=== PATIENT | female | born 1955 | race Caucasian/White ===

== ENCOUNTER → 2016-10-08 | Outpatient (CLI) | payer BC ==
--- NOTE | 2016-10-08 09:38 | MM ---
Reason for exam: history of breast cancer, conservation therapy. Last mammogram was performed 1 year ago. History: Patient is postmenopausal, has history of other cancer at age 54, has history of breast cancer at age 51, and is nulliparous. Family history of breast cancer in sister at age 70. Excisional biopsy of the left breast, April 18, 2007. Malignant lumpectomy of the left breast, April 18, 2007. Malignant left mammotome panel of the left breast, April 09, 2007. Radiation therapy of the left breast, 2006. Took estrogen for 7 years 6 months beginning at age 44. Took progesterone for 7 years 6 months beginning at age 44. Physical Findings: Nurse did not find any significant physical abnormalities on exam. MG 3D Diag Mammo W/Cad RAHAT Bilateral CC and MLO view(s) were taken. Prior study comparison: October 06, 2015, bilateral MG 3d diag mammo w/cad RAHAT. October 04, 2014, bilateral MG diagnostic mammo w CAD RAHAT. No significant new findings when compared with previous films. These results were verbally communicated with the patient and result sheet given to the patient on 10/08/16. ASSESSMENT: Benign, BI-RAD 2 RECOMMENDATION: Follow-up diagnostic mammogram of both breasts in 1 year.
== END ==
LOC: RADMAMWWP 08:06
PROVIDERS: ATTEND Radiology Diagnostic Radiology
DX: Z85.3 Personal history of malignant neoplasm of breast (principal)
CPT/HCPCS: G0204; G0279

== ENCOUNTER → 2017-10-10 | Outpatient (CLI) | payer BC ==
--- NOTE | 2017-10-10 11:28 | MM ---
Reason for exam: additional evaluation requested from prior study. Last mammogram was performed 1 year ago. History: Patient is postmenopausal, has history of other cancer at age 54, has history of breast cancer at age 51, and is nulliparous. Family history of breast cancer in sister at age 70. Excisional biopsy of the left breast, April 18, 2007. Malignant lumpectomy of the left breast, April 18, 2007. Malignant left mammotome panel of the left breast, April 09, 2007. Radiation therapy of the left breast, 2006. Took estrogen for 7 years 6 months beginning at age 44. Took progesterone for 7 years 6 months beginning at age 44. Physical Findings: Nurse did not find any significant physical abnormalities on exam. MG 3D Diag Mammo W/Cad RAHAT Bilateral CC and MLO view(s) were taken. Prior study comparison: October 08, 2016, bilateral MG 3d diag mammo w/cad RAHAT. October 06, 2015, bilateral MG 3d diag mammo w/cad RAHAT. The breast tissue is heterogeneously dense. This may lower the sensitivity of mammography. Post surgical changes in the left breast. No significant new findings when compared with previous films. These results were verbally communicated with the patient and result sheet given to the patient on 10/10/17. ASSESSMENT: Benign, BI-RAD 2 RECOMMENDATION: Routine screening mammogram of both breasts in 1 year.
== END | disposition home or self-care (01) ==
LOC: RADMAMWWP 10:05
PROVIDERS: ATTEND Radiology Diagnostic Radiology
DX: Z08 Encounter for follow-up examination after completed treatment for malignant neoplasm (principal); Z85.3 Personal history of malignant neoplasm of breast
CPT/HCPCS: 77066; G0279

== ENCOUNTER 2018-02-02 16:17 | Emergency (ER) | payer BC ==
[2018-02-02 16:33] VITALS: BP 131/75; PULSE 68; RESP 18; TEMP 98.4
--- NOTE | 2018-02-02 17:27 | ED ---
General Adult HPI - General Chief complaint: Extremity Injury, Upper Stated complaint: LEFT SHOULDER INJURY FROM FALL Time Seen by Provider: 02/02/18 17:02 Source: patient, RN notes reviewed Mode of arrival: ambulatory Limitations: no limitations - History of Present Illness Initial comments: Patient 62-year-old female presenting to the emergency room today with a chief complaint of a fall that occurred approximately 12 skin appears that she was walking and then tripped over the first step onto the left shoulder. She states there is pain locally states seems to be doing well at this time. States she has been able to ambulate. Patient admits to pain in the left shoulder worse with movements. Patient denies any other complaints or symptoms. Patient denies any recent fever, chills, shortness of breath, chest pain, back pain, abdominal pain, nausea or vomiting, numbness or tingling, headaches or visual changes, or any other complaints. - Related Data Allergies Allergy/AdvReac Type Severity Reaction Status Date / Time acetaminophen [From Tylenol] Allergy Rash/Hives Verified 02/02/18 16:36 cephalexin [From Keflex] Allergy Rash/Hives Verified 02/02/18 16:36 Cephalosporins Allergy Rash/Hives Verified 02/02/18 16:36 erythromycin base Allergy Rash/Hives Verified 02/02/18 16:36 nitrofurantoin Allergy Rash/Hives Verified 02/02/18 16:36 [From Macrodantin] Penicillins Allergy Rash/Hives Verified 02/02/18 16:36 Sulfa (Sulfonamide Allergy Rash/Hives Verified 02/02/18 16:36 Antibiotics) Tetracyclines Allergy Rash/Hives Verified 02/02/18 16:36 anicin Allergy Rash/Hives Uncoded 02/02/18 16:36 Review of Systems ROS Statement: Those systems with pertinent positive or pertinent negative responses have been documented in the HPI. ROS Other: All systems not noted in ROS Statement are negative. Past Medical History Past Medical History: Hyperlipidemia, Hypertension, Thyroid Disorder History of Any Multi-Drug Resistant Organisms: None Reported Additional Past Surgical History / Comment(s): thyroidectomy, endometrisis sx Past Psychological History: Anxiety Smoking Status: Former smoker Past Alcohol Use History: Occasional Past Drug Use History: None Reported General Exam - General Exam Comments Initial Comments: General: The patient is awake and alert, in no distress, and does not appear acutely ill. Neck: The neck is supple, there is no tenderness or JVD. Cardiovascular: There is a regular rate and rhythm. No murmur, rub or gallop is appreciated. Respiratory: Lungs are clear to auscultation, respirations are non-labored, breath sounds are equal. No wheezes, stridor, rales, or rhonchi. Musculoskeletal: Patient does have tenderness to the proximal humerus. Shows limited range of motion due to pain. Sensations are intact. Radial pulses 2+. Strength from the left elbow and wrist and hand are 5/5. Neurological: A&O x 3. CN II-XII intact, There are no obvious motor or sensory deficits. Coordination appears grossly intact. Speech is normal. Skin: Skin is warm and dry and no rashes or lesions are noted. Psychiatric: Normal mood and affect. Limitations: no limitations Course Vital Signs 02/02/18 16:28 Temperature 98.4 F Pulse Rate 68 Respiratory 18 Rate Blood Pressure 131/75 O2 Sat by Pulse 100 Oximetry Medical Decision Making - Medical Decision Making X-ray reviewed and does show fracture through the greater tuberosity nondisplaced. Results were discussed with the patient. Patient given arm sling and advised follow-up orthopedics. Patient does not want anything for pain. Will be discharged home advised to ice area. Disposition Clinical Impression: Greater tuberosity of humerus fracture Disposition: HOME SELF-CARE Condition: Good Additional Instructions: Please follow-up the family doctor or orthopedics as discussed. Please use arm sling when up and moving around. Please return to emergency room for any other concerns. Is patient prescribed a controlled substance at d/c from ED?: No Referrals: Tenzin Loja MD [Primary Care Provider] - 1-2 days Javier Collier MD [STAFF PHYSICIAN] - 1-2 days Time of Disposition: 17:40
--- NOTE | 2018-02-02 17:28 | XR ---
EXAMINATION TYPE: XR shoulder complete LT DATE OF EXAM: 02/02/2018 COMPARISON: NONE HISTORY: 62-year-old female with pain after fall TECHNIQUE: 3 views FINDINGS: Nondisplaced fracture of the greater tuberosity. Subacromial space is preserved. No subluxation or di slocation. AC joint appears intact. IMPRESSION: Nondisplaced greater tuberosity fracture. Appropriate orthopedic follow-up recommended.
== END 2018-02-02 18:05 | disposition home or self-care (01) ==
LOC: EC 16:17
DX: S42.255A Nondisplaced fracture of greater tuberosity of left humerus, initial encounter for closed fracture (principal); Z87.891 Personal history of nicotine dependence; Z88.0 Allergy status to penicillin; Z88.1 Allergy status to other antibiotic agents; Z88.2 Allergy status to sulfonamides; Z88.6 Allergy status to analgesic agent; Z88.8 Allergy status to other drugs, medicaments and biological substances; W10.9XXA Fall (on) (from) unspecified stairs and steps, initial encounter
CPT/HCPCS: 99283

== ENCOUNTER → 2018-02-17 | Outpatient (CLI) | payer BC ==
--- NOTE | 2018-02-17 08:51 | CT ---
EXAMINATION TYPE: CT shoulder LT wo con DATE OF EXAM: 02/17/2018 COMPARISON: 02/02/2018 plain film HISTORY: Left shoulder pain from fall CT DLP: 313.80 mGycm Automated exposure control for dose reduction was used. Technique: Axial images 2 mm thick sections. Reconstructed images in the sagittal and coronal plane. Three-D reconstructed images performed separa tely on the [employer] computer are filmed and presented. FINDINGS: The humeral head articulates with the glenoid. The acromioclavicular junction appears normal. There is a subtle nondisplaced fracture of the greater tuberosity of the left humerus. No additional fractures are identified. Soft tissue density appears normal. No obvious large effusions are evident. There does appear to be some joint space narrowing suggestive for osteoarthritic degenerative change at the humeral glenoid junction. IMPRESSION: SUBTLE NONDISPLACED FRACTURE GREATER TUBEROSITY LEFT HUMERUS. NO SIGNIFICANT INTERVAL HEALING IDENTIF IED..
== END | disposition home or self-care (01) ==
LOC: RADCTMAIN 07:42
PROVIDERS: ATTEND Orthopaedic Surgery
DX: S42.255A Nondisplaced fracture of greater tuberosity of left humerus, initial encounter for closed fracture (principal)

== ENCOUNTER → 2018-07-28 | Outpatient (CLI) | payer MEDICARE ==
--- NOTE | 2018-07-28 09:46 | CT ---
EXAMINATION TYPE: CT brain wo con DATE OF EXAM: 07/28/2018 COMPARISON: None HISTORY: Trouble with balance, equilibrium instability CT DLP: 945.5 mGycm Automated exposure control for dose reduction was used. TECHNIQUE: CT scan of the head is performed without contrast. FINDINGS: There is no acute intracranial hemorrhage or midline shift identified. There is symmetric and mild ventricular and sulcal prominence consistent with diffuse age-related cerebral atrophy. Th ere is minimal low-attenuation in the periventricular white matter and within the bonnie such as on axi al image 13. No suspicious extra-axial fluid collection is seen. The globes are intact and the visual ized sinuses are clear. Carmelita bullosa are incidentally noted. IMPRESSION: 1. No acute intracranial hemorrhage or midline shift. 2. Mild periventricular and pontine hypointensity may be on the basis of microangiopathy however coul d be further evaluated with MRI.
--- NOTE | 2018-07-28 10:04 | US ---
EXAMINATION TYPE: US carotid duplex BILAT DATE OF EXAM: 07/28/2018 COMPARISON: NONE CLINICAL HISTORY: R55 Syncope. EXAM MEASUREMENTS: RIGHT: Peak Systolic Velocity (PSV) cm/sec ----- Right CCA: 57.4 ----- Right ICA: 78.2 ----- Right ECA: 59.5 ICA/CCA ratio: 1.4 RIGHT: End Diastole cm/sec ----- Right CCA: 17.3 ----- Right ICA: 28.5 ----- Right ECA: 7.2 LEFT: Peak Systolic Velocity (PSV) cm/sec ----- Left CCA: 68.3 ----- Left ICA: 60.9 ----- Left ECA: 67.0 ICA/CCA ratio: 0.9 LEFT: End Diastole cm/sec ----- Left CCA: 17.8 ----- Left ICA: 25.0 ----- Left ECA: 8.4 VERTEBRALS (direction of flow): Right Vertebral: Antegrade Left Vertebral: Antegrade Rhythm: Normal No elevated velocities, no significant stenosis. IMPRESSION: Mild degree of grayscale atheromatous plaquing with no sonographically evident hemodynam ically significant stenosis within either visualized carotid arterial system. Criteria for Assigning % of Stenosis / Diameter reduction (Estimation based on the indirect measurements of the internal carotid artery velocities (ICA PSV). 1. Normal (no stenosis)=ICA PSV < 125 cm/s: ratio < 2.0: ICA EDV<40 cm/s. 2. Less than 50% stenosis=ICA PSV < 125 cm/s: ratio < 2.0: ICA EDV<40 cm/s. 3. 50 to 69% stenosis=ICA PSV of 125 to 230 cm/s: ration 2.0 ? 4.0: ICA EDV 40-100 cm/s. 4. Greater than 70% stenosis to near occlusion= ICA PSV > 230 cm/s: ratio > 4.0: ICA EDV > 100 cm/s. 5. Near occlusion= ICA PSV velocities may be low or undetectable: variable ratio and ICA EDV. 6. Total occlusion=unable to detect flow.
--- NOTE | 2018-07-28 15:32 | ECHOF ---
Referral Reason:R55 Syncope MEASUREMENTS -------- HEIGHT: 170.2 cm WEIGHT: 71.7 kg BP: IVSd: 1.2 cm (0.6 - 1.1) LVIDd: 3.9 cm (3.9 - 5.3) LVPWd: 1.5 cm (0.6 - 1.1) IVSs: 1.5 cm LVIDs: 2.8 cm LVPWs: 1.6 cm LA Diam: 3.7 cm (2.7 - 3.8) RVIDd: 2.5 cm (< 3.3) LAESV Index (A-L): 28.73 ml/m Ao Diam: 2.3 cm (2.0 - 3.7) LA Diam: 4.0 cm (2.7 - 3.8) AV Cusp: 1.6 cm (1.5 - 2.6) EPSS: 0.3 cm MV E Flavio: 0.79 m/s MV DecT: 253 ms MV A Flavio: 0.70 m/s MV E/A Ratio: 1.12 RAP: 5.00 mmHg RVSP: 12.42 mmHg MV EF SLOPE: 90.62 mm/s (70 - 150) MV EXCURSION: 19.44 mm (> 18.000) FINDINGS -------- Sinus rhythm. This was a technically good study. The left ventricular size is normal. There is borderline concentric left ventricular hypertrophy. Overall left ventricular systolic function is normal with, an EF between 55 - 60 %. The right ventricle is normal in size. The left atrial size is normal. The right atrial size is normal. The aortic valve is trileaflet, and appears structurally normal. No aortic stenosis or regurgitation. Mild mitral regurgitation is present. Mild tricuspid regurgitation present. There is no evidence of pulmonary hypertension. The right v entricular systolic pressure, as measured by Doppler, is 12.42mmHg. Trace/mild (physiologic) pulmonic regurgitation. The aortic root size is normal. There is no pericardial effusion. CONCLUSIONS -------- 1. The left ventricular size is normal. 2. There is borderline concentric left ventricular hypertrophy. 3. The right ventricle is normal in size. 4. The left atrial size is normal. 5. The right atrial size is normal. 6. The aortic valve is trileaflet, and appears structurally normal. No aortic stenosis or regurgitati on. 7. Mild mitral regurgitation is present. 8. Mild tricuspid regurgitation present. 9. There is no evidence of pulmonary hypertension. 10. The right ventricular systolic pressure, as measured by Doppler, is 12.42mmHg. 11. Trace/mild (physiologic) pulmonic regurgitation. 12. The aortic root size is normal. 13. There is no pericardial effusion. GRINDER SET UP OPERATOR INTERNAL: Elif Carson RDCS
== END ==
LOC: RADCTMAIN 09:01
PROVIDERS: ATTEND Family Medicine
DX: I67.2 Cerebral atherosclerosis (principal); R94.02 Abnormal brain scan
CPT/HCPCS: 70450; 93306; 93880

== ENCOUNTER → 2018-10-13 | Outpatient (CLI) | payer MEDICARE ==
--- NOTE | 2018-10-13 11:48 | MM ---
Reason for exam: additional evaluation requested from prior study. Last mammogram was performed 1 year ago. History: Patient is postmenopausal, has history of other cancer at age 54, has history of breast cancer at age 51, and is nulliparous. Family history of breast cancer in sister at age 70. Excisional biopsy of the left breast, April 18, 2007. Malignant lumpectomy of the left breast, April 18, 2007. Malignant left mammotome panel of the left breast, April 09, 2007. Radiation therapy of the left breast, 2006. Took estrogen for 7 years 6 months beginning at age 44. Took progesterone for 7 years 6 months beginning at age 44. Physical Findings: Nurse did not find any significant physical abnormalities on exam. MG 3D Diag Mammo W/Cad RAHAT Bilateral CC and MLO view(s) were taken. Prior study comparison: October 10, 2017, bilateral MG 3d diag mammo w/cad RAHAT. October 08, 2016, bilateral MG 3d diag mammo w/cad RAHAT. The breast tissue is heterogeneously dense. This may lower the sensitivity of mammography. Post surgical and post therapy changes left breast. Central asymmetric density right CC view is unchanged. These results were verbally communicated with the patient and result sheet given to the patient on 10/13/18. ASSESSMENT: Benign, BI-RAD 2 RECOMMENDATION: Follow-up diagnostic mammogram of both breasts in 1 year.
== END ==
LOC: RADMAMWWP 10:56
PROVIDERS: ATTEND Radiology Diagnostic Radiology
DX: Z08 Encounter for follow-up examination after completed treatment for malignant neoplasm (principal); Z85.3 Personal history of malignant neoplasm of breast
CPT/HCPCS: 77066; G0279; 77062

== ENCOUNTER → 2019-12-31 | Outpatient (CLI) | payer MEDICARE ==
--- NOTE | 2020-01-05 09:19 | MM ---
Reason for exam: additional evaluation requested from prior study. Last mammogram was performed 1 year and 3 months ago. History: Patient is postmenopausal, has history of other cancer at age 54, has history of breast cancer at age 51, and is nulliparous. Family history of breast cancer in sister at age 70. Excisional biopsy of the left breast, April 18, 2007. Malignant lumpectomy of the left breast, April 18, 2007. Malignant left mammotome panel of the left breast, April 09, 2007. Radiation therapy of the left breast, 2006. Took estrogen for 7 years 6 months beginning at age 44. Took progesterone for 7 years 6 months beginning at age 44. Physical Findings: Nurse did not find any significant physical abnormalities on exam. MG 3D Diag Mammo W/Cad RAHAT Bilateral CC and MLO view(s) were taken. ML and spot compression CC view(s) were taken of the right breast. Prior study comparison: October 13, 2018, bilateral MG 3d diag mammo w/cad RAHAT. October 10, 2017, bilateral MG 3d diag mammo w/cad RAHAT. The breast tissue is heterogeneously dense. This may lower the sensitivity of mammography. Benign appearing bilateral calcifications. Lateral right posterior depth asymmetry persists on additional views with no ML correlate. Ultrasound will be performed. Post therapy change on the left. These results were verbally communicated with the patient and result sheet given to the patient on 12/31/19. ASSESSMENT: Incomplete: need additional imaging evaluation, BI-RAD 0 RECOMMENDATION: Ultrasound of the right breast.
--- NOTE | 2020-01-05 09:20 | USB ---
Reason for exam: additional evaluation requested from abnormal screening. History: Patient is postmenopausal, has history of other cancer at age 54, has history of breast cancer at age 51, and is nulliparous. Family history of breast cancer in sister at age 70. Excisional biopsy of the left breast, April 18, 2007. Malignant lumpectomy of the left breast, April 18, 2007. Malignant left mammotome panel of the left breast, April 09, 2007. Radiation therapy of the left breast, 2006. Took estrogen for 7 years 6 months beginning at age 44. Took progesterone for 7 years 6 months beginning at age 44. US Breast Limited RT Technologist: Lizz Butler Right limited breast ultrasound including focal area of concern, retroareolar and axilla demonstrates a 0.4 x 0.4 x 0.3cm cystic lesion at 6 o'clock. No sonographic correlate for the right mammographic asymmetry. These results were verbally communicated with the patient and result sheet given to the patient on 12/31/19. ASSESSMENT: Probably benign, BI-RAD 3 RECOMMENDATION: Follow-up diagnostic mammogram of the right breast in 6 months.
== END | disposition home or self-care (01) ==
LOC: RADMAMWWP 12:58
PROVIDERS: ATTEND Radiology Diagnostic Radiology
DX: R92.8 Other abnormal and inconclusive findings on diagnostic imaging of breast (principal); Z85.3 Personal history of malignant neoplasm of breast
CPT/HCPCS: 77066; 76642; G0279; 77062

== ENCOUNTER 2020-07-26 14:26 | Emergency (ER) | payer MEDICARE ==
[2020-07-26 14:31] VITALS: BP 138/79; PULSE 65; RESP 16; TEMP 98
--- NOTE | 2020-07-26 15:21 | XR ---
Left wrist HISTORY: Pain, trauma 4 views of the left wrist Bone mineralization, joint spaces and alignment are maintained. IMPRESSION: No fracture or dislocation is evident. Follow-up as indicated.
--- NOTE | 2020-07-26 15:24 | ED ---
Fall HPI - General Chief Complaint: Fall Stated Complaint: Fall Time Seen by Provider: 07/26/20 14:34 Source: patient, RN notes reviewed Mode of arrival: ambulatory Limitations: no limitations - History of Present Illness Initial Comments: 65-year-old female presents emergency Department with chief complaint of fall. Patient states she slipped on some ice fell backwards struck her head on concrete steps. Patient states she also injured her left wrist. Patient and no loss conscious. Patient does take aspirin patient does not take any blood thinners. Denies any back pain, hip pain. She is able to ambulate. She states is moderate swelling to her left wrist. Patient states there is pain with movement and palpation to her left wrist she is [id number] patient offers no other complaints. - Related Data Allergies Allergy/AdvReac Type Severity Reaction Status Date / Time acetaminophen [From Tylenol] Allergy Rash/Hives Verified 07/26/20 14:28 cephalexin [From Keflex] Allergy Rash/Hives Verified 07/26/20 14:28 Cephalosporins Allergy Rash/Hives Verified 07/26/20 14:28 erythromycin base Allergy Rash/Hives Verified 07/26/20 14:28 nitrofurantoin Allergy Rash/Hives Verified 07/26/20 14:28 [From Macrodantin] Penicillins Allergy Rash/Hives Verified 07/26/20 14:28 Sulfa (Sulfonamide Allergy Rash/Hives Verified 07/26/20 14:28 Antibiotics) Tetracyclines Allergy Rash/Hives Verified 07/26/20 14:28 anicin Allergy Rash/Hives Uncoded 07/26/20 14:28 Review of Systems ROS Statement: Those systems with pertinent positive or pertinent negative responses have been documented in the HPI. ROS Other: All systems not noted in ROS Statement are negative. Past Medical History Past Medical History: Hyperlipidemia, Hypertension, Thyroid Disorder History of Any Multi-Drug Resistant Organisms: None Reported Additional Past Surgical History / Comment(s): thyroidectomy, endometrisis sx Past Psychological History: Anxiety Smoking Status: Never smoker Past Alcohol Use History: Occasional Past Drug Use History: None Reported General Exam Limitations: no limitations General appearance: alert, in no apparent distress Head exam: Present: atraumatic, normocephalic, normal inspection Eye exam: Present: normal appearance, PERRL, EOMI. Absent: scleral icterus, conjunctival injection, periorbital swelling ENT exam: Present: normal exam, normal oropharynx, mucous membranes moist Neck exam: Present: normal inspection, full ROM. Absent: tenderness, meningismus, lymphadenopathy Respiratory exam: Present: normal lung sounds bilaterally. Absent: respiratory distress, wheezes, rales, rhonchi, stridor Cardiovascular Exam: Present: regular rate, normal rhythm, normal heart sounds. Absent: systolic murmur, diastolic murmur, rubs, gallop, clicks Extremities exam: Present: other (Left wrist there is moderate swelling noted, tenderness over mid wrist, there is no scaphoid tenderness) Back exam: Present: full ROM. Absent: tenderness Neurological exam: Present: alert, oriented X3, CN II-XII intact, reflexes normal. Absent: motor sensory deficit Skin exam: Present: warm, dry, intact, normal color. Absent: rash Course Vital Signs 07/26/20 14:28 Temperature 98 F Pulse Rate 65 Respiratory 16 Rate Blood Pressure 138/79 O2 Sat by Pulse 99 Oximetry Medical Decision Making - Medical Decision Making CT of the brain, C-spine are unremarkable. X-ray reviewed of the left wrist with no acute osseous abnormality. Patient has no scaphoid tenderness. Patient's left wrist sprain, mild head injury. Patient be discharged in stable condition. Disposition Clinical Impression: Fall, Head injury, Left wrist sprain Disposition: HOME SELF-CARE Condition: Stable Instructions (If sedation given, give patient instructions): Head Injury (ED), Wrist Sprain (ED) Additional Instructions: Please return to the Emergency Department if symptoms worsen or any other concerns. Is patient prescribed a controlled substance at d/c from ED?: No Referrals: Delisa Silverman DO [Primary Care Provider] - 1-2 days Delbert Levy DO [Doctor of Osteopathic Medicine] - 1-2 days Time of Disposition: 15:55
--- NOTE | 2020-07-26 15:33 | CT ---
EXAMINATION TYPE: CT brain jose a wo con DATE OF EXAM: 07/26/2020 COMPARISON: CT brain 07/28/2018 HISTORY: Fall, hit back of head CT DLP: 1276.5 mGycm Automated exposure control for dose reduction was used. TECHNIQUE: CT scan of the head and cervical spine are performed without contrast. FINDINGS: There is no acute intracranial hemorrhage, mass effect, or midline shift identified. The ventricles and sulci are within normal limits in size. The globes are intact and the visualized sin uses are clear. Cervical spine is visualized in its entirety from C1 through upper thoracic levels and demonstrates s atisfactory alignment without evidence of acute fracture or dislocation. Prevertebral soft tissue ap pears within normal limits. Degenerative disc changes are present in the visualized spine, there is f acet arthropathy change, there is a spinal curvature present centered at the lower cervical spine The C1-C2 articulation is unremarkable. IMPRESSION: 1. There is no acute fracture or dislocation evident in the cervical spine. 2. No acute intracranial hemorrhage, mass effect, or midline shift is seen.
== END 2020-07-26 15:57 | disposition home or self-care (01) ==
LOC: EC 14:26
DX: S63.502A Unspecified sprain of left wrist, initial encounter (principal); S09.90XA Unspecified injury of head, initial encounter; I10 Essential (primary) hypertension; E78.5 Hyperlipidemia, unspecified; Z88.6 Allergy status to analgesic agent; Z88.1 Allergy status to other antibiotic agents; Z88.0 Allergy status to penicillin; Z88.2 Allergy status to sulfonamides; Z88.8 Allergy status to other drugs, medicaments and biological substances; W00.0XXA Fall on same level due to ice and snow, initial encounter; Y92.009 Unspecified place in unspecified non-institutional (private) residence as the place of occurrence of the external cause
CPT/HCPCS: 70450; 72125; 99284

== ENCOUNTER → 2021-01-24 | Outpatient (CLI) | payer MEDICARE ==
[~2021-01-24] MED LIST: DOBUTamine DRIP for NUC MED 500 MG in DEXTROSE/WATER 1 250ML.BAG IV PRN
--- NOTE | 2021-01-24 11:17 | P.STRESS ---
- Stress Test Note Stress Test Results/Findings: Exam Performed: dobutamine stress echo Exam Date: 01/24/21 Reason for Exam: Abnormal EKG Height: 5 ft 7 in Weight: 77.564 kg Protocol: Dobutamine Stage: 40 Duration of Exercise: 14:20 Resting Heart Rate: 64 Resting Blood Pressure: 127/50 Maximum Achieved Heart Rate: 104 Maximum Achieved Blood Pressure: 232/50 85% PMHR: 130 100% PMHR: 153 METS: na Technologist Comment: Stress Test Results/Findings: This is a 65-year-old female with history of hypertension, hypercholesterolemia and tobacco use being evaluated for cardiac status because of abnormal EKG. Stress data: Blood pressure at rest is 127/50 with a pulse rate of 64. EKG at baseline showed sinus rhythm with normal WI interval and QRS duration. Blood pressure at rest is 127/50, pulse rate 64. A standard dose of dobutamine was initiated and was titrated to maximum 40 mics, achieving a maximal rate of only and for the blood pressure was about 232/50. EKGs taken during or after the dobutamine infusion did not reveal an significant changes from the baseline. Echo data: Baseline echo images show normal wall motion and thickening. Images taken at low dose and high dose dobutamine showed augmentation of wall motion and thickening in all the segments. However, patient did not achieve 85% predicted heart rate. Achieved only 68% of the predicted heart rate. Final impression #1. Nondiagnostic dobutamine stress test because of inadequate heart rate response #2. Nondiagnostic an inconclusive dobutamine stress echo. However, at about 68% of the predicted heart rate, no ischemic changes noted
--- NOTE | 2021-01-26 11:16 | ECHOS ---
Stress Test Results/Findings: Exam Performed: dobutamine stress echo Exam Date: 01/24/21 Reason for Exam: Abnormal EKG Height: 5 ft 7 in Weight: 77.564 kg Protocol: Dobutamine Stage: 40 Duration of Exercise: 14:20 Resting Heart Rate: 64 Resting Blood Pressure: 127/50 Maximum Achieved Heart Rate: 104 Maximum Achieved Blood Pressure: 232/50 85% PMHR: 130 100% PMHR: 153 METS: na Technologist Comment: Stress Test Results/Findings: This is a 65-year-old female with history of hypertension, hypercholesterolemia and tobacco use being evaluated for cardiac status because of abnormal EKG. Stress data: Blood pressure at rest is 127/50 with a pulse rate of 64. EKG at baseline showed sinus rhythm with normal MI interval and QRS duration. Blood pressure at rest is 127/50, pulse rate 64. A standard dose of dobutamine was initiated and was titrated to maximum 40 mics, achieving a maximal rate of only and for the blood pressure was about 232/50. EKGs taken during or after the dobutamine infusion did not reveal an significant changes from the baseline. Echo data: Baseline echo images show normal wall motion and thickening. Images taken at low dose and high dose dobutamine showed augmentation of wall motion and thickening in all the segments. However, patient did not achieve 85% predicted heart rate. Achieved only 68% of the predicted heart rate. Final impression #1. Nondiagnostic dobutamine stress test because of inadequate heart rate response #2. Nondiagnostic an inconclusive dobutamine stress echo. However, at about 68% of the predicted heart rate, no ischemic changes noted MTDD
== END | disposition home or self-care (01) ==
LOC: RADNMMAIN 09:12
PROVIDERS: ATTEND Family Medicine
DX: R94.31 Abnormal electrocardiogram [ECG] [EKG] (principal)
CPT/HCPCS: 93351; J1250

== ENCOUNTER → 2024-06-10 | Outpatient (CLI) | payer MEDICARE ==
[~2024-06-10] MED LIST changes: -DOBUTamine DRIP for NUC MED 500 MG in DEXTROSE/WATER 1 250ML.BAG IV PRN; +SODIUM CHLORIDE 0.9% 250 ML in EMPTY BAG 1 BAG IV PRN
[2024-06-10 14:05] VITALS: BP 164/82; PULSE 61; RESP 16; TEMP 98.3
[2024-06-10] MEDS: ZOLEDRONIC ACID 5 MG in SODIUM CHLORIDE 0.9% 100 ML IV NR (14:17)
[2024-06-10] MEDS: SODIUM CHLORIDE 0.9% 500 ML 500 ML in EMPTY BAG 1 BAG IV PRN (14:17)
== END ==
LOC: PROCWHC3 13:30
PROVIDERS: ATTEND Internal Medicine
DX: M81.0 Age-related osteoporosis without current pathological fracture (principal)
CPT/HCPCS: 96365; J3489

== ENCOUNTER → 2025-02-11 | Outpatient (CLI) | payer MEDICARE ==
--- NOTE | 2025-02-11 15:01 | XR ---
EXAMINATION TYPE: XR thoracic spine complete DATE OF EXAM: 02/11/2025 2:21 PM COMPARISON: None CLINICAL INDICATION: Female, 69 years old with history of UPPER BACK PAIN; PHH, pain TECHNIQUE: XR thoracic spine complete views of the spine in Frontal, swimmers and lateral projections . FINDINGS: No evidence of acute fracture. There is scattered multilevel disk space narrowing without loss of ve rtebral body height. There is normal alignment of the thoracic vertebral bodies. Scattered osteophyte formation along the anterior and lateral aspects of the vertebral bodies. Neural foramen are patent given limitations of this exam. Spinal canal appears patent. IMPRESSION: 1. No acute osseous pathology. 2. [id number] multilevel degeneration changes of the spine. [facility], , 02/11/2025 2:59 PM
== END | disposition home or self-care (01) ==
LOC: RADXRMAIN 14:03
PROVIDERS: ATTEND Internal Medicine
DX: M47.814 Spondylosis without myelopathy or radiculopathy, thoracic region (principal)
CPT/HCPCS: 72072

== ENCOUNTER → 2025-02-11 | Outpatient (CLI) | payer MEDICARE ==
--- NOTE | 2025-02-11 13:45 | MM ---
Reason for Exam: Hx of breast cancer, conservation therapy. Last mammogram was performed 1 year(s) and 1 month(s) ago. Patient History: Menarche at age 10. Patient has no children. Right ovary removed at age 30. Postmenopausal. Other cancer, age 54. Breast cancer, age 51. Previous chest radiation therapy at age 51. Estrogen for 7 years, 6 months, from age 44 until age 52. Progesterone for 7 years, 6 months, from age 44 until age 52. 04/18/2007, Malignant Lumpectomy on the left side. 04/18/2007, Excisional Biopsy on the Left side. 04/09/2007, Malignant Core Biopsy on the left side. 2006, Radiation Therapy on the left side. Sister had breast cancer, age 70. Prior Study Comparison: 10/08/2016 Bilateral Diagnostic Mammogram, [facility]. 10/10/2017 Bilateral Diagnostic Mammogram, [facility]. 10/13/2018 Bilateral Diagnostic Mammogram, [facility]. 12/31/2019 Bilateral Diagnostic Mammogram, [facility]. 01/10/2023 Bilateral MG 3D diag mammo wo cad RAHAT, [facility]. 01/15/2024 Bilateral MG 3D diag mammo w/cad RAHAT - 2, [facility]. Tissue Density: The breasts are heterogeneously dense, which may obscure small masses. Findings: Analyzed By CAD. Postsurgical change left breast. Bilateral benign-appearing calcifications. No suspicious calcifications. Overall Assessment: Benign, BI-RAD 2 Management: Diagnostic Mammogram of both breasts in 1 year. . Results were given to the patient verbally at the time of exam. Patient should continue monthly self-breast exams. A clinical breast exam by your physician is recommended on an annual basis. This exam should not preclude additional follow-up of suspicious palpable abnormalities. Note on Ivonne scores and lifetime risk: 1. A Ivonne score greater than 3% is considered moderate risk. If this is the case, consider specialist referral to assess eligibility for a risk reducing agent. 2. If overall lifetime risk for the development of breast cancer is 20% or higher, the patient may qualify for future screening with alternating mammogram and breast MRI. [facility], , 02/11/2025 1:41 PM. Electronically signed and approved by: Lloyd Grewal M.D. Radiologis
== END | disposition home or self-care (01) ==
LOC: RADMAMWWP 12:48
PROVIDERS: ATTEND Internal Medicine
DX: R92.333 Mammographic heterogeneous density, bilateral breasts (principal); Z85.3 Personal history of malignant neoplasm of breast; Z78.0 Asymptomatic menopausal state; Z80.3 Family history of malignant neoplasm of breast; Z92.3 Personal history of irradiation
CPT/HCPCS: 77062; 77066